=== PATIENT | female | born 1970 | race Caucasian/White ===

== ENCOUNTER 2020-10-09 21:40 | Emergency (ER) | payer OTHER ==
[~2020-10-09 21:40] MED LIST: BACTRIM DS TAB1 EACH PO; CYCLOBENZAPRINE10 MG PO; KEFLEX500 MG PO; MEDROL 4MG DOSEP4 MG PO; NEURONTIN100 MG PO; NORCO 5-325 TA1 EACH PO; OXYCODONE-ACET1 EAC1 PO; PREDNISONE 20MG20 MG PO; TERBINAFINE TOP; TESSALON PERLE100 MG PO; ZOFRAN8 MG PO
[2020-10-09 23:49] LABS: EOSINOPHIL 3.2 % (0-5); HCT 43.1 % (37.0-47.0); HGB 15.4 g/dl (12.5-16.0); MCH 35.9 pg (25.0-31.0); MCHC 35.7 g/dL (32.0-36.0); MCV 100.5 fL (78.0-100.0); MONOCYTE 6.9 % (0-12); NEUTROPHIL 70.5 % (41-80); NRBC 0; PLT 216 K/uL (150-400); RBC 4.29 M/uL (4.20-5.40); RDW 12.7 % (11.5-14.0); WBC 7.3 K/uL (4.0-10.5)
[2020-10-09 23:59] LABS: INR 0.98 (0.9-1.2); PROTHROMBIN TIME 12.3 SECONDS (11.4-13.6); PTT 20.4 SECONDS (22.2-34.7)
[2020-10-10 00:06] LABS: ALBUMIN 3.7 g/dL (3.4-5.0); ALKALINE PHOSHATASE 95 U/L (46-116); ALT 58 U/L (14-59); AST 33 U/L (15-37); BILIRUBIN - TOTAL 1.4 mg/dL (0.2-1.0); BUN 11 mg/dL (7-18); BUN/CREAT RATIO (CALC) 11.8 RATIO; C-REACTIVE PROTEIN <0.20 mg/dL (<=0.90); CHLORIDE 103 mmol/L (98-107); CO2 (BICARBONATE) 27 mmol/L (21-32); CREATININE 0.93 mg/dL (0.51-0.95); GLOBULIN (CALCULATION) 3.8 g/dL; GLUCOSE 104 mg/dL (74-106); MAGNESIUM 2.2 mg/dL (1.8-2.4); POTASSIUM 3.4 mmol/L (3.5-5.1); TOTAL PROTEIN 7.5 g/dL (6.4-8.2)
[2020-10-10] MEDS ORDERED: NORCO 5-325 TA1 EACH PO (02:49)
== END 2020-10-10 03:17 | disposition home or self-care (01) ==
LOC: FER 21:40
PROVIDERS: Emergency Medicine
DX: G89.18 Other acute postprocedural pain (principal); N64.4 Mastodynia; M25.512 Pain in left shoulder; Z85.3 Personal history of malignant neoplasm of breast; Z87.891 Personal history of nicotine dependence; Z86.14 Personal history of Methicillin resistant Staphylococcus aureus infection
CPT/HCPCS: 36415; 71260; 80053; 83605; 83735; 84145; 85025; 85610; 85730; 86140; 87040; J1170; J2405; J7030; Q9967

== ENCOUNTER 2021-01-23 11:09 | Emergency (ER) | payer OTHER ==
[2021-01-23 14:38] LABS: BASOPHIL 0.7 % (0-2); EOSINOPHIL 2.2 % (0-5); HCT 39.1 % (37.0-47.0); LYMPHOCYTE 19.8 % (15-48); MCH 36.2 pg (25.0-31.0); MCHC 35.8 g/dL (32.0-36.0); MONOCYTE 5.7 % (0-12); NEUTROPHIL 70.7 % (41-80); NRBC 0; PLT 194 K/uL (150-400); RBC 3.87 M/uL (4.20-5.40); RDW 12.9 % (11.5-14.0); WBC 6.8 K/uL (4.0-10.5)
[2021-01-23 14:43] LABS: ALBUMIN 3.2 g/dL (3.4-5.0); BILIRUBIN - TOTAL 0.9 mg/dL (0.2-1.0); BUN/CREAT RATIO (CALC) 20.2 RATIO; CREATININE 0.94 mg/dL (0.51-0.95); GLOBULIN (CALCULATION) 2.9 g/dL; POTASSIUM 3.8 mmol/L (3.5-5.1); TOTAL PROTEIN 6.1 g/dL (6.4-8.2)
[2021-01-23 14:53] LABS: PRO-BNP 393 pg/mL (<125)
[2021-01-23 15:15] LABS: INFLUENZA A NAA NEGATIVE (NEGATIVE)
[2021-01-23 15:21] LABS: CORONAVIRUS 2019 SARS-COV-2 POSITIVE (NEGATIVE)
[2021-01-23] MEDS ORDERED: VENTOLIN HFA IN18 GM INH (15:36)
[2021-01-23] MEDS ORDERED: TESSALON PERLE100 MG PO (15:36)
[2021-01-23] MEDS ORDERED: MEDROL 4MG DOSEP4 MG PO (15:36)
== END 2021-01-23 15:55 | disposition home or self-care (01) ==
LOC: FER 11:09
PROVIDERS: Nurse Practitioner Family
DX: U07.1 COVID-19 (principal)
CPT/HCPCS: 36415; 71046; 80053; 83880; 84484; 85025; 85379; J1100; U0002

== ENCOUNTER 2021-01-28 23:03 | Inpatient (IN) | payer OTHER ==
[~2021-01-28 23:03] MED LIST changes: +VENTOLIN HFA IN18 GM INH
[2021-01-28 23:51] LABS: BASOPHIL 0.5 % (0-2); EOSINOPHIL 0.2 % (0-5); HGB 14.7 g/dl (12.5-16.0); LYMPHOCYTE 13.7 % (15-48); MCH 36.7 pg (25.0-31.0); MCHC 35.9 g/dL (32.0-36.0); MCV 102.2 fL (78.0-100.0); MONOCYTE 4.9 % (0-12); MPV 10.9 fL (6.0-9.5); NEUTROPHIL 79.2 % (41-80); NRBC 0.2; PLT 198 K/uL (150-400); RBC 4.01 M/uL (4.20-5.40); RDW 13.4 % (11.5-14.0); WBC 12.4 K/uL (4.0-10.5)
[2021-01-29 00:13] LABS: BUN/CREAT RATIO (CALC) 20.4 RATIO; CREATININE 0.93 mg/dL (0.51-0.95); POTASSIUM 3.3 mmol/L (3.5-5.1)
[2021-01-29 00:16] LABS: INR 1.03 (0.9-1.2); PROTHROMBIN TIME 12.8 SECONDS (11.4-13.6)
[2021-01-29 00:23] LABS: LACTIC ACID 2.8 mmol/L (0.4-1.9)
[2021-01-29 00:26] LABS: PRO-BNP 680 pg/mL (<125)
[2021-01-29 00:27] LABS: BILIRUBIN NEGATIVE (NEGATIVE); BLOOD NEGATIVE Ery/uL (NEGATIVE); CLARITY CLEAR (CLEAR); COLOR YELLOW (YELLOW); GLUCOSE (U) NORMAL (NORMAL); LEUKOCYTES NEGATIVE Leu/uL (NEGATIVE); NITRITE NEGATIVE (NEGATIVE); PROTEIN NEGATIVE (NEGATIVE); SPECIFIC GRAVITY 1.015 (1.001-1.030); UROBILINOGEN 0.2 mg/dL (0.2-1.0); pH 5.5 (5.0-9.0)
[2021-01-29 00:29] LABS: HCG (URINE) SCREEN NEGATIVE (NEGATIVE)
[2021-01-29] MEDS ORDERED: MELOXICAM15 MG PO (04:39)
[2021-01-29] MEDS ORDERED: DIAZEPAM 5MG TAB5 MG PO (04:40)
[2021-01-29] MEDS ORDERED: PRISTIQ50 MG PO (04:41)
[2021-01-29] MEDS ORDERED: PANTOPRAZOLE SO20 MG PO (04:41)
[2021-01-29] MEDS ORDERED: PHENERGAN6.25 MG/5 PO (04:42)
[2021-01-29] MEDS ORDERED: PEPCID AC20 MG PO (04:42)
[2021-01-29] MEDS ORDERED: FLONASE ALLER15.8 ML (04:43)
[2021-01-29] MEDS ORDERED: ALL DAY ALLERGY10 M2 PO (04:44)
[2021-01-29] MEDS ORDERED: ANASTROZOLE1 MG PO (04:45)
[2021-01-29] MEDS ORDERED: SM CALCIUM PO (04:45)
[2021-01-29] MEDS ORDERED: VENTOLIN HFA IN18 GM INH ×2 (04:45→04:51)
[2021-01-29 07:15] LABS: BASOPHIL 0.3 % (0-2); EOSINOPHIL 0 % (0-5); HCT 39.6 % (37.0-47.0); HGB 14.3 g/dl (12.5-16.0); LYMPHOCYTE 5.6 % (15-48); MCH 36.5 pg (25.0-31.0); MCHC 36.1 g/dL (32.0-36.0); MONOCYTE 1.1 % (0-12); MPV 9.8 fL (6.0-9.5); NEUTROPHIL 91.4 % (41-80); NRBC 0; PLT 212 K/uL (150-400); RBC 3.92 M/uL (4.20-5.40); RDW 13.4 % (11.5-14.0); WBC 10.8 K/uL (4.0-10.5)
[2021-01-29 07:47] LABS: BUN/CREAT RATIO (CALC) 17.4 RATIO; CREATININE 0.86 mg/dL (0.51-0.95); POTASSIUM 4.5 mmol/L (3.5-5.1)
[2021-01-29] MEDS ORDERED: DESVENLAFAXINE50 MG PO (12:17)
[2021-01-29 15:48] LABS: HCT 37.9 % (37.0-47.0); HGB 13.7 g/dl (12.5-16.0); MCH 36.6 pg (25.0-31.0); MCHC 36.1 g/dL (32.0-36.0); MCV 101.3 fL (78.0-100.0); MPV 10.2 fL (6.0-9.5); RBC 3.74 M/uL (4.20-5.40); RDW 13.5 % (11.5-14.0); RETICULOCYTE COUNT 3.6 % (1.0-2.0); WBC 13.2 K/uL (4.0-10.5)
[2021-01-29 16:14] LABS: IRON % SATURATION 32.5 %SAT (20-50)
[2021-01-29 16:27] LABS: BUN/CREAT RATIO (CALC) 24.4 RATIO; CREATININE 0.82 mg/dL (0.51-0.95); FOLIC ACID (SERUM) 12.5 ng/mL (8.6-58.9)
[2021-01-30 05:54] LABS: BASOPHIL 0.6 % (0-2); EOSINOPHIL 0.2 % (0-5); HCT 43.2 % (37.0-47.0); HGB 15.1 g/dl (12.5-16.0); LYMPHOCYTE 18.8 % (15-48); MCH 36.5 pg (25.0-31.0); MCV 104.3 fL (78.0-100.0); MONOCYTE 6.6 % (0-12); MPV 10.8 fL (6.0-9.5); NEUTROPHIL 72.4 % (41-80); NRBC 0; PLT 197 K/uL (150-400); RBC 4.14 M/uL (4.20-5.40); RDW 13.8 % (11.5-14.0); WBC 12.4 K/uL (4.0-10.5)
[2021-01-30 06:45] LABS: BUN/CREAT RATIO (CALC) 18.8 RATIO; CREATININE 0.96 mg/dL (0.51-0.95); MAGNESIUM 2.1 mg/dL (1.8-2.4); POTASSIUM 4.3 mmol/L (3.5-5.1)
--- NOTE | 2021-01-30 18:17 | NUR ---
RN PERFORMED WALK TEST, RESTING SP02 ON RA 94% AMBULATION ON RA 77% AND AMBULATION WITH 2L O2 88%
[2021-01-31 05:59] LABS: BASOPHIL 0.6 % (0-2); EOSINOPHIL 1.6 % (0-5); HCT 41.6 % (37.0-47.0); HGB 14.8 g/dl (12.5-16.0); MCH 36.9 pg (25.0-31.0); MCHC 35.6 g/dL (32.0-36.0); MCV 103.7 fL (78.0-100.0); MONOCYTE 3.9 % (0-12); MPV 10.5 fL (6.0-9.5); NEUTROPHIL 74.3 % (41-80); NRBC 0; PLT 165 K/uL (150-400); RBC 4.01 M/uL (4.20-5.40); RDW 13.2 % (11.5-14.0); WBC 6.7 K/uL (4.0-10.5)
[2021-01-31 06:26] LABS: BUN/CREAT RATIO (CALC) 20.8 RATIO; CREATININE 1.01 mg/dL (0.51-0.95); POTASSIUM 3.5 mmol/L (3.5-5.1)
[2021-01-31 06:33] LABS: NEUTROPHILS(M) 80 % (41-80)
[2021-01-31 06:34] LABS: BAND 3 % (0-10); EOSINOPHIL(M) 1 % (0-5); LYMPHOCYTE(M) 14 % (15-48); MONOCYTE(M) 2 % (0-12); PLATELET ESTIMATE NORMAL; PLATELET MORPHOLOGY NORMAL
--- NOTE | 2021-01-31 10:24 | NUR ---
01/31/21 Ms. Horton shares a home with her boyfriend and another friend. She was independent in the home and community prior to admission. No discharge needs are anticipated.
== END 2021-01-31 17:13 | disposition other institution (70) | DRG 291 ==
LOC: FER 23:03 → FTCU 01-29 03:28
PROVIDERS: Internal Medicine; Internal Medicine Cardiovascular Disease; Nurse Practitioner; Student in an Organized Health Care Education/Training Program; ADMIT Allergy & Immunology Allergy
DX: I50.33 Acute on chronic diastolic (congestive) heart failure (principal); J96.01 Acute respiratory failure with hypoxia; R65.11 Systemic inflammatory response syndrome (SIRS) of non-infectious origin with acute organ dysfunction; E87.2 Acidosis; J70.1 Chronic and other pulmonary manifestations due to radiation; Z20.822 Contact with and (suspected) exposure to COVID-19; I27.20 Pulmonary hypertension, unspecified; F41.9 Anxiety disorder, unspecified; I08.8 Other rheumatic multiple valve diseases; M51.36 Other intervertebral disc degeneration, lumbar region; F10.11 Alcohol abuse, in remission; Z87.891 Personal history of nicotine dependence; Z85.72 Personal history of non-Hodgkin lymphomas; Z92.3 Personal history of irradiation; Z85.3 Personal history of malignant neoplasm of breast; Z90.13 Acquired absence of bilateral breasts and nipples; Z98.890 Other specified postprocedural states; Z79.51 Long term (current) use of inhaled steroids; Z79.899 Other long term (current) drug therapy; Z90.710 Acquired absence of both cervix and uterus
CPT/HCPCS: 36415; 71046; 71275; 80048; 80202; 81003; 82607; 82746; 83540; 83550; 83605; 83615; 83735; 83880; 84145; 84439; 84443; 84484; 84703; 85025; 85610; 85730; 87040; 87070; 87205; 93005; 94640; 94664; 94667; 94668; J1100; J1650; J1885; J1940; J2060; J2270; J2405; J2543; J3370; J7030; J7050; J7120; Q9967; U0002

== ENCOUNTER 2021-02-07 03:34 | Emergency (ER) | payer OTHER ==
[~2021-02-07 03:34] MED LIST changes: +ALL DAY ALLERGY10 M2 PO; +ANASTROZOLE1 MG PO; +DESVENLAFAXINE50 MG PO; +DIAZEPAM 5MG TAB5 MG PO; +FLONASE ALLER15.8 ML; +MELOXICAM15 MG PO; +PANTOPRAZOLE SO20 MG PO; +PEPCID AC20 MG PO; +PHENERGAN6.25 MG/5 PO; +PRISTIQ50 MG PO; +SM CALCIUM PO
[2021-02-07 04:41] LABS: BASOPHIL 0.2 % (0-2); EOSINOPHIL 0.3 % (0-5); HCT 39.3 % (37.0-47.0); LYMPHOCYTE 16.5 % (15-48); MCH 37.1 pg (25.0-31.0); MCHC 35.6 g/dL (32.0-36.0); MCV 104.2 fL (78.0-100.0); MONOCYTE 8.3 % (0-12); NRBC 0; PLT 224 K/uL (150-400); RBC 3.77 M/uL (4.20-5.40); WBC 12.4 K/uL (4.0-10.5)
[2021-02-07 05:15] LABS: ALBUMIN 3.5 g/dL (3.4-5.0); BILIRUBIN - TOTAL 0.6 mg/dL (0.2-1.0); BUN/CREAT RATIO (CALC) 29.1 RATIO; CREATININE 0.86 mg/dL (0.51-0.95); GLOBULIN (CALCULATION) 3.3 g/dL; MAGNESIUM 2.2 mg/dL (1.8-2.4); PHOSPHORUS 4.5 mg/dL (2.6-4.7); POTASSIUM 3.6 mmol/L (3.5-5.1); TOTAL PROTEIN 6.8 g/dL (6.4-8.2); URIC ACID 6.7 mg/dL (2.6-6.2)
[2021-02-07] MEDS ORDERED: PERCOCET 5-3251 EACH PO (07:45)
[2021-02-07] MEDS ORDERED: IBUPROFEN800 MG PO (07:45)
== END 2021-02-07 08:19 | disposition home or self-care (01) ==
LOC: FER 03:34
PROVIDERS: Emergency Medicine Emergency Medical Services
DX: M25.561 Pain in right knee (principal); M25.562 Pain in left knee; M25.532 Pain in left wrist; M79.89 Other specified soft tissue disorders; R00.0 Tachycardia, unspecified
CPT/HCPCS: 36415; 80053; 83735; 84100; 84550; 85025; 85379; J1100; J1170; J1885; J2405

== ENCOUNTER 2021-02-18 14:43 | Emergency (ER) | payer OTHER ==
[~2021-02-18 14:43] MED LIST changes: +IBUPROFEN800 MG PO; +PERCOCET 5-3251 EACH PO
[2021-02-18 15:50] LABS: ALBUMIN 3.5 g/dL (3.4-5.0); BASOPHIL 0.6 % (0-2); BILIRUBIN - TOTAL 1.5 mg/dL (0.2-1.0); BUN/CREAT RATIO (CALC) 18.5 RATIO; CREATININE 0.81 mg/dL (0.51-0.95); EOSINOPHIL 2.7 % (0-5); GLOBULIN (CALCULATION) 3.1 g/dL; HCT 38.7 % (37.0-47.0); HGB 13.7 g/dl (12.5-16.0); LYMPHOCYTE 17.2 % (15-48); MCH 37.3 pg (25.0-31.0); MCHC 35.4 g/dL (32.0-36.0); MCV 105.4 fL (78.0-100.0); MONOCYTE 5.4 % (0-12); MPV 9.9 fL (6.0-9.5); NRBC 0; POTASSIUM 4.6 mmol/L (3.5-5.1); RBC 3.67 M/uL (4.20-5.40); RDW 14.3 % (11.5-14.0); TOTAL PROTEIN 6.6 g/dL (6.4-8.2); WBC 5.2 K/uL (4.0-10.5)
[2021-02-18 15:58] LABS: PRO-BNP 414 pg/mL (<125)
[2021-02-18 16:13] LABS: PLT 170 K/uL (150-400)
[2021-02-18 17:04] LABS: INR 0.98 (0.9-1.2); PROTHROMBIN TIME 12.3 SECONDS (11.4-13.6); PTT 23.5 SECONDS (22.2-34.7)
[2021-02-18 17:28] LABS: BILIRUBIN NEGATIVE (NEGATIVE); BLOOD NEGATIVE Ery/uL (NEGATIVE); CLARITY CLEAR (CLEAR); COLOR YELLOW (YELLOW); GLUCOSE (U) NORMAL (NORMAL); LEUKOCYTES NEGATIVE Leu/uL (NEGATIVE); NITRITE NEGATIVE (NEGATIVE); PROTEIN TRACE (LOW) mg/dL (NEGATIVE); SPECIFIC GRAVITY 1.015 (1.001-1.030); pH 8.5 (5.0-9.0)
[2021-02-18 17:39] LABS: BACTERIA 1+
[2021-02-18 21:00] LABS: LACTIC ACID 0.4 mmol/L (0.4-1.9)
== END 2021-02-19 04:46 | disposition home or self-care (01) ==
LOC: FER 14:43
PROVIDERS: Emergency Medicine
DX: J84.10 Pulmonary fibrosis, unspecified (principal); R00.0 Tachycardia, unspecified; I50.9 Heart failure, unspecified; Z20.822 Contact with and (suspected) exposure to COVID-19
CPT/HCPCS: 36415; 71045; 71250; 80053; 81001; 83605; 83880; 84145; 84484; 85025; 85379; 85610; 85730; 93005; J1885; J2270; J2405; J7030; U0002

== ENCOUNTER 2021-03-27 08:46 | Emergency (ER) | payer OTHER ==
[2021-03-27 09:20] LABS: BASOPHIL 0.8 % (0-2); EOSINOPHIL 3.2 % (0-5); HCT 39.5 % (37.0-47.0); HGB 13.7 g/dl (12.5-16.0); LYMPHOCYTE 23.8 % (15-48); MCH 37.3 pg (25.0-31.0); MCHC 34.7 g/dL (32.0-36.0); MCV 107.6 fL (78.0-100.0); MONOCYTE 5.7 % (0-12); MPV 9.8 fL (6.0-9.5); NEUTROPHIL 66.1 % (41-80); NRBC 0; PLT 200 K/uL (150-400); RBC 3.67 M/uL (4.20-5.40); RDW 14.3 % (11.5-14.0); WBC 7.1 K/uL (4.0-10.5)
[2021-03-27 09:35] LABS: ALBUMIN 3.6 g/dL (3.4-5.0); BILIRUBIN - TOTAL 0.7 mg/dL (0.2-1.0); BUN/CREAT RATIO (CALC) 10.7 RATIO; CREATININE 0.84 mg/dL (0.51-0.95); GLOBULIN (CALCULATION) 3.2 g/dL; POTASSIUM 3.7 mmol/L (3.5-5.1); TOTAL PROTEIN 6.8 g/dL (6.4-8.2)
[2021-03-27 09:43] LABS: PRO-BNP 597 pg/mL (<125)
[2021-03-27] MEDS ORDERED: LOPRESSOR25 MG PO (10:52)
[2021-03-27] MEDS ORDERED: LASIX20 MG PO (10:52)
== END 2021-03-27 11:30 | disposition home or self-care (01) ==
LOC: FER 08:46
PROVIDERS: Emergency Medicine
DX: I50.9 Heart failure, unspecified (principal); Z90.13 Acquired absence of bilateral breasts and nipples; Z79.82 Long term (current) use of aspirin; Z79.899 Other long term (current) drug therapy; Z85.3 Personal history of malignant neoplasm of breast
CPT/HCPCS: 36415; 71045; 80053; 83605; 83880; 84484; 85025; 87040; 93005; 94760; J1940

== ENCOUNTER 2021-10-06 19:48 | Emergency (ER) | payer OTHER ==
[~2021-10-06 19:48] MED LIST changes: +LASIX20 MG PO; +LOPRESSOR25 MG PO
[2021-10-06 21:24] LABS: EOSINOPHIL 2.7 % (0-5); HGB 15.8 g/dl (12.5-16.0); LYMPHOCYTE 23.6 % (15-48); MCH 36.4 pg (25.0-31.0); MCHC 35.9 g/dL (32.0-36.0); MCV 101.4 fL (78.0-100.0); MONOCYTE 6.5 % (0-12); NRBC 0; PLT 237 K/uL (150-400); RBC 4.34 M/uL (4.20-5.40); RDW 11.9 % (11.5-14.0); WBC 8.6 K/uL (4.0-10.5)
[2021-10-06 21:36] LABS: CORONAVIRUS 2019 SARS-COV-2 NEGATIVE (NEGATIVE); INFLUENZA A NAA NEGATIVE (NEGATIVE)
[2021-10-06 21:51] LABS: ALBUMIN 3.7 g/dL (3.4-5.0); BILIRUBIN - TOTAL 0.7 mg/dL (0.2-1.0); CREATININE 0.7 mg/dL (0.51-0.95); GLOBULIN (CALCULATION) 3.9 g/dL; POTASSIUM 3.7 mmol/L (3.5-5.1); TOTAL PROTEIN 7.6 g/dL (6.4-8.2)
[2021-10-07] MEDS ORDERED: PREDNISONE 20MG20 MG PO (08:04)
[2021-10-07] MEDS ORDERED: ATIVAN1 MG PO (08:04)
[2021-10-07] MEDS ORDERED: AZITHROMYCIN250 MG PO (08:04)
[2021-10-07] MEDS ORDERED: AUGMENTIN 875-1 EACH PO (08:04)
== END 2021-10-07 08:45 | disposition home or self-care (01) ==
LOC: FER 19:48
PROVIDERS: Nurse Practitioner Family
DX: C78.00 Secondary malignant neoplasm of unspecified lung (principal); R91.8 Other nonspecific abnormal finding of lung field; I11.0 Hypertensive heart disease with heart failure; I50.9 Heart failure, unspecified; K76.89 Other specified diseases of liver; J45.909 Unspecified asthma, uncomplicated; Z20.822 Contact with and (suspected) exposure to COVID-19; Z53.29 Procedure and treatment not carried out because of patient's decision for other reasons; Z79.899 Other long term (current) drug therapy; Z85.3 Personal history of malignant neoplasm of breast
CPT/HCPCS: 36415; 71045; 71275; 80053; 83880; 84484; 85025; 93005; 94640; 94664; J1100; J1940; J2060; Q9967; U0002

== ENCOUNTER 2021-10-24 10:20 | Emergency (ER) | payer OTHER ==
[~2021-10-24 10:20] MED LIST changes: +ATIVAN1 MG PO; +AUGMENTIN 875-1 EACH PO; +AZITHROMYCIN250 MG PO
[2021-10-24 12:11] LABS: BASOPHIL 0.7 % (0-2); EOSINOPHIL 2.8 % (0-5); HCT 42.8 % (37.0-47.0); HGB 15.1 g/dl (12.5-16.0); LYMPHOCYTE 10.6 % (15-48); MCH 36.7 pg (25.0-31.0); MCHC 35.3 g/dL (32.0-36.0); MCV 103.9 fL (78.0-100.0); MONOCYTE 4.1 % (0-12); MPV 10.3 fL (6.0-9.5); NEUTROPHIL 81.3 % (41-80); NRBC 0; PLT 226 K/uL (150-400); RBC 4.12 M/uL (4.20-5.40); RDW 12.7 % (11.5-14.0)
[2021-10-24 12:14] LABS: INR 1.02 (0.9-1.2); PROTHROMBIN TIME 12.8 SECONDS (11.8-13.4); PTT 25.5 SECONDS (24.4-34.7)
[2021-10-24 12:21] LABS: LACTIC ACID 1.7 mmol/L (0.4-1.9)
[2021-10-24 12:31] LABS: ALBUMIN 3.7 g/dL (3.4-5.0); BUN/CREAT RATIO (CALC) 12.7 RATIO; CREATININE 0.79 mg/dL (0.51-0.95); GLOBULIN (CALCULATION) 3.8 g/dL; POTASSIUM 3.9 mmol/L (3.5-5.1); TOTAL PROTEIN 7.5 g/dL (6.4-8.2)
[2021-10-24 13:37] LABS: CORONAVIRUS 2019 SARS-COV-2 NEGATIVE (NEGATIVE); INFLUENZA A NAA NEGATIVE (NEGATIVE)
[2021-10-24] MEDS ORDERED: NORCO 5-325 TA1 EACH PO (16:21)
[2021-10-24] MEDS ORDERED: ZPAK PO (16:21)
[2021-10-26] MEDS ORDERED: LOPRESSOR50 MG PO (06:23)
[2021-10-26] MEDS ORDERED: SYMBICORT 16010.2 GM INH (06:25)
[2021-10-26] MEDS ORDERED: ULTRAM50 MG PO (08:22)
[2021-10-26] MEDS ORDERED: NORCO 5-325 TA1 EACH PO (11:16)
== END 2021-10-24 17:07 | disposition home or self-care (01) ==
LOC: FER 10:20
PROVIDERS: Emergency Medicine
DX: J40 Bronchitis, not specified as acute or chronic (principal); C78.01 Secondary malignant neoplasm of right lung; I50.9 Heart failure, unspecified; Z20.822 Contact with and (suspected) exposure to COVID-19; Z87.891 Personal history of nicotine dependence; Z79.899 Other long term (current) drug therapy
CPT/HCPCS: 36415; 36600; 71045; 71275; 80053; 82803; 83605; 83880; 84145; 84484; 85025; 85610; 85730; J1170; J2060; J2930; Q9967; U0002

== ENCOUNTER → 2021-10-26 | Day surgery (SDC) | payer OTHER ==
[~2021-10-26] VITALS: Ht 167.6 cm; Wt 73.9 kg
[~2021-10-26] MED LIST changes: +LOPRESSOR50 MG PO; +SYMBICORT 16010.2 GM INH; +ULTRAM50 MG PO; +ZPAK PO
== END | disposition home or self-care (01) ==
LOC: FAS 06:06
DX: C34.92 Malignant neoplasm of unspecified part of left bronchus or lung (principal); C77.1 Secondary and unspecified malignant neoplasm of intrathoracic lymph nodes; C50.912 Malignant neoplasm of unspecified site of left female breast; I11.0 Hypertensive heart disease with heart failure; I50.9 Heart failure, unspecified; J45.909 Unspecified asthma, uncomplicated; J84.10 Pulmonary fibrosis, unspecified; F41.9 Anxiety disorder, unspecified; M19.90 Unspecified osteoarthritis, unspecified site; F17.200 Nicotine dependence, unspecified, uncomplicated; F32.A Depression, unspecified; K21.9 Gastro-esophageal reflux disease without esophagitis; Z85.3 Personal history of malignant neoplasm of breast; Z79.2 Long term (current) use of antibiotics; Z79.1 Long term (current) use of non-steroidal anti-inflammatories (NSAID); Z79.899 Other long term (current) drug therapy; Z90.710 Acquired absence of both cervix and uterus; Z99.89 Dependence on other enabling machines and devices; Z90.13 Acquired absence of bilateral breasts and nipples; Z80.3 Family history of malignant neoplasm of breast; Z82.49 Family history of ischemic heart disease and other diseases of the circulatory system
CPT/HCPCS: 71045; 76000; C1788; J0690; J1100; J1644; J1885; J2001; J2250; J2405; J2704; J3010; J7120

== ENCOUNTER 2021-11-08 10:05 | Emergency (ER) | payer OTHER ==
[2021-11-08 11:31] LABS: BASOPHIL 2.7 % (0-2); HCT 34.3 % (37.0-47.0); HGB 12.3 g/dl (12.5-16.0); LYMPHOCYTE 46.9 % (15-48); MCH 37.2 pg (25.0-31.0); MCHC 35.9 g/dL (32.0-36.0); MCV 103.6 fL (78.0-100.0); MONOCYTE 5.4 % (0-12); MPV 10.1 fL (6.0-9.5); NEUTROPHIL 42.3 % (41-80); NRBC 0; RBC 3.31 M/uL (4.20-5.40); RDW 12.2 % (11.5-14.0)
[2021-11-08 11:35] LABS: LACTIC ACID 2.2 mmol/L (0.4-1.9)
[2021-11-08 11:39] LABS: PLT 85 K/uL (150-400); WBC 1.5 K/uL (4.0-10.5)
[2021-11-08 11:41] LABS: ALBUMIN 3.2 g/dL (3.4-5.0); BILIRUBIN - TOTAL 0.8 mg/dL (0.2-1.0); BUN/CREAT RATIO (CALC) 14.7 RATIO; CREATININE 0.68 mg/dL (0.51-0.95); GLOBULIN (CALCULATION) 3.6 g/dL; POTASSIUM 3.7 mmol/L (3.5-5.1); TOTAL PROTEIN 6.8 g/dL (6.4-8.2)
[2021-11-08] MEDS ORDERED: AZITHROMYCIN250 MG PO (15:44)
[2021-11-08] MEDS ORDERED: CEFDINIR300 MG PO (15:44)
== END 2021-11-08 16:05 | disposition home or self-care (01) ==
LOC: FER 10:05
PROVIDERS: Emergency Medicine
DX: C34.11 Malignant neoplasm of upper lobe, right bronchus or lung (principal); I50.9 Heart failure, unspecified
CPT/HCPCS: 36415; 71045; 71260; 80053; 83605; 83880; 84145; 84484; 85025; J1170; J2405; J7030; Q9967

== ENCOUNTER 2021-11-21 06:09 | Inpatient (IN) | payer OTHER ==
[~2021-11-21] VITALS: Ht 162.6 cm; Wt 79.0 kg
[~2021-11-21 06:09] MED LIST changes: +CEFDINIR300 MG PO
[2021-11-21 06:56] LABS: BASOPHIL 0.1 % (0-2); EOSINOPHIL 0 % (0-5); HCT 29.3 % (37.0-47.0); HGB 10.3 g/dl (12.5-16.0); LYMPHOCYTE 5.7 % (15-48); MCH 37.3 pg (25.0-31.0); MCHC 35.2 g/dL (32.0-36.0); MCV 106.2 fL (78.0-100.0); MONOCYTE 4.4 % (0-12); MPV 10.3 fL (6.0-9.5); NEUTROPHIL 88.6 % (41-80); PLT 273 K/uL (150-400); RBC 2.76 M/uL (4.20-5.40); RDW 14.2 % (11.5-14.0); WBC 11.2 K/uL (4.0-10.5)
[2021-11-21 07:02] LABS: INR 1.17 (0.9-1.2); PROTHROMBIN TIME 14.3 SECONDS (11.8-13.4); PTT 21.8 SECONDS (24.4-34.7)
[2021-11-21 07:04] LABS: D-DIMER 0.62 ug/mLFEU (0.00-0.41)
[2021-11-21 07:19] LABS: ALBUMIN 3.6 g/dL (3.4-5.0); BUN/CREAT RATIO (CALC) 17.2 RATIO; CREATININE 0.93 mg/dL (0.51-0.95); GLOBULIN (CALCULATION) 3.7 g/dL; POTASSIUM 4.9 mmol/L (3.5-5.1); TOTAL PROTEIN 7.3 g/dL (6.4-8.2)
[2021-11-21] MEDS ORDERED: LASIX20 MG PO (11:59)
[2021-11-21] MEDS ORDERED: PRISTIQ50 MG PO (11:59)
[2021-11-21] MEDS ORDERED: ATIVAN1 M1 PO (12:00)
[2021-11-21] MEDS ORDERED: TOPROL XL 50 MG50 MG PO (12:00)
[2021-11-21] MEDS ORDERED: ANASTROZOLE1 MG PO (12:00)
[2021-11-21] MEDS ORDERED: VITAMIN D PO ×2 (12:01→12:18)
[2021-11-21] MEDS ORDERED: OS-CAL500 MG PO (12:01)
[2021-11-21] MEDS ORDERED: SPIRIVA18 MCG INH (12:03)
[2021-11-21] MEDS ORDERED: OXYCONTIN10 MG PO (12:04)
[2021-11-21] MEDS ORDERED: FLONASE ALLER15.8 ML (12:04)
[2021-11-21] MEDS ORDERED: CETIRIZINE HCL10 MG PO (12:04)
[2021-11-21] MEDS ORDERED: DECADRON4 MG PO (12:05)
[2021-11-21] MEDS ORDERED: SYMBICORT 80-10.2 GM INH (12:06)
[2021-11-21] MEDS ORDERED: PROTONIX 40MG T40 MG PO (12:13)
[2021-11-21] MEDS ORDERED: PROAIR DIGIHAL90 MCG INH (12:13)
[2021-11-21] MEDS ORDERED: COMPAZINE10 MG PO (12:13)
[2021-11-21] MEDS ORDERED: CALCIUM PO (12:17)
[2021-11-21] MEDS ORDERED: ZINC50 M3 PO (12:17)
[2021-11-21 15:24] LABS: IRON % SATURATION 84.3 %SAT (20-50)
[2021-11-22 06:06] LABS: BASOPHIL 0.1 % (0-2); EOSINOPHIL 0 % (0-5); HCT 30.8 % (37.0-47.0); HGB 10.5 g/dl (12.5-16.0); LYMPHOCYTE 5.7 % (15-48); MCH 37.5 pg (25.0-31.0); MCHC 34.1 g/dL (32.0-36.0); MONOCYTE 4.9 % (0-12); MPV 10.5 fL (6.0-9.5); NEUTROPHIL 88.6 % (41-80); NRBC 0.4; PLT 275 K/uL (150-400); RDW 15.3 % (11.5-14.0); WBC 16.4 K/uL (4.0-10.5)
[2021-11-22 06:30] LABS: ALBUMIN 3.3 g/dL (3.4-5.0); BILIRUBIN - TOTAL 1.4 mg/dL (0.2-1.0); BUN/CREAT RATIO (CALC) 17.4 RATIO; CREATININE 1.49 mg/dL (0.51-0.95); GLOBULIN (CALCULATION) 3.2 g/dL; MAGNESIUM 2.2 mg/dL (1.8-2.4); PHOSPHORUS 6.2 mg/dL (2.6-4.7); POTASSIUM 5.4 mmol/L (3.5-5.1); TOTAL PROTEIN 6.5 g/dL (6.4-8.2)
[2021-11-22 11:42] LABS: BUN/CREAT RATIO (CALC) 21.3 RATIO; CREATININE 1.36 mg/dL (0.51-0.95); MAGNESIUM 2.2 mg/dL (1.8-2.4); PHOSPHORUS 5.2 mg/dL (2.6-4.7); POTASSIUM 4.6 mmol/L (3.5-5.1)
--- NOTE | 2021-11-22 15:58 | NUR ---
11/22/21 Ms. Horton shares a home with her s.o. and who she refers to as her "adoptied son". He s.o.is disabled. He has a hospital bed and wc. He is able to walk to the bathroom. The "adopted son, 32 y/o, is ab;e to assist. - Ms. Horton does not use any DME. She is receiving treatment at [facility] for lung cancer. She has had a bilateral masectomy and Hodgkens Lymphoma in the past. - Ms. Horton will be transferred to the [facility]. Gallbladder surgery was post poned. - Emotional support is being provided.
== END 2021-11-22 20:20 | disposition other institution (70) | DRG 444 ==
LOC: FER 06:09 → FMS 09:54 → FTCU 09:54 → FMS 09:54 → FTCU 11-22 10:46
PROVIDERS: Emergency Medicine; ADMIT Internal Medicine
DX: K81.0 Acute cholecystitis (principal); I21.4 Non-ST elevation (NSTEMI) myocardial infarction; C34.90 Malignant neoplasm of unspecified part of unspecified bronchus or lung; C78.1 Secondary malignant neoplasm of mediastinum; C81.90 Hodgkin lymphoma, unspecified, unspecified site; Z20.822 Contact with and (suspected) exposure to COVID-19; D64.9 Anemia, unspecified; I08.0 Rheumatic disorders of both mitral and aortic valves; M51.36 Other intervertebral disc degeneration, lumbar region; F10.10 Alcohol abuse, uncomplicated; Z90.13 Acquired absence of bilateral breasts and nipples; Z90.710 Acquired absence of both cervix and uterus; Z92.21 Personal history of antineoplastic chemotherapy; Z85.3 Personal history of malignant neoplasm of breast; Z87.891 Personal history of nicotine dependence; Z90.711 Acquired absence of uterus with remaining cervical stump; Z98.890 Other specified postprocedural states; Z79.899 Other long term (current) drug therapy
CPT/HCPCS: 36415; 71045; 71275; 76705; 78226; 80048; 80053; 82248; 83540; 83550; 83605; 83690; 83735; 83880; 84100; 84145; 84484; 85025; 85379; 85610; 85730; 87040; 93005; 94010; 94760; A9537; C9113; J1170; J1644; J2270; J2405; J2543; J7030; Q0164; Q9967; U0002

== ENCOUNTER 2021-12-15 15:20 | Emergency (ER) | payer OTHER ==
[~2021-12-15 15:20] MED LIST changes: +ATIVAN1 M1 PO; +CALCIUM PO; +CETIRIZINE HCL10 MG PO; +COMPAZINE10 MG PO; +DECADRON4 MG PO; +OS-CAL500 MG PO; +OXYCONTIN10 MG PO; +PROAIR DIGIHAL90 MCG INH; +PROTONIX 40MG T40 MG PO; +SPIRIVA18 MCG INH; +SYMBICORT 80-10.2 GM INH; +TOPROL XL 50 MG50 MG PO; +VITAMIN D PO; +ZINC50 M3 PO
[2021-12-15 16:16] LABS: BASOPHIL 0.7 % (0-2); EOSINOPHIL 1.8 % (0-5); HCT 29.6 % (37.0-47.0); HGB 10.2 g/dl (12.5-16.0); LYMPHOCYTE 15.8 % (15-48); MCHC 34.5 g/dL (32.0-36.0); MCV 92.8 fL (78.0-100.0); MONOCYTE 10.3 % (0-12); MPV 10.3 fL (6.0-9.5); NRBC 0; PLT 236 K/uL (150-400); RBC 3.19 M/uL (4.20-5.40); RDW 17.8 % (11.5-14.0); WBC 6.7 K/uL (4.0-10.5)
[2021-12-15 16:44] LABS: LACTIC ACID 0.6 mmol/L (0.4-1.9)
[2021-12-15 16:57] LABS: ALBUMIN 3.7 g/dL (3.4-5.0); BILIRUBIN - TOTAL 1.5 mg/dL (0.2-1.0); CREATININE 1.64 mg/dL (0.51-0.95); GLOBULIN (CALCULATION) 4.4 g/dL; POTASSIUM 2.8 mmol/L (3.5-5.1); TOTAL PROTEIN 8.1 g/dL (6.4-8.2)
[2021-12-15 21:05] LABS: BILIRUBIN NEGATIVE (NEGATIVE); BLOOD NEGATIVE Ery/uL (NEGATIVE); CLARITY CLEAR (CLEAR); COLOR YELLOW (YELLOW); GLUCOSE (U) NORMAL (NORMAL); LEUKOCYTES NEGATIVE Leu/uL (NEGATIVE); NITRITE NEGATIVE (NEGATIVE); PROTEIN NEGATIVE (NEGATIVE); SPECIFIC GRAVITY 1.015 (1.001-1.030); UROBILINOGEN 0.2 mg/dL (0.2-1.0)
[2021-12-15 21:10] LABS: URINARY WBC RARE
[2021-12-15 21:11] LABS: BACTERIA TRACE
[2021-12-15 21:53] LABS: MAGNESIUM 3.6 mg/dL (1.8-2.4); POTASSIUM 3.6 mmol/L (3.5-5.1)
== END 2021-12-16 00:37 | disposition other institution (70) ==
LOC: FER 15:20
PROVIDERS: Emergency Medicine; Internal Medicine
DX: R10.13 Epigastric pain (principal); R11.2 Nausea with vomiting, unspecified; R74.01 Elevation of levels of liver transaminase levels; Z28.311 Partially vaccinated for COVID-19
CPT/HCPCS: 36415; 80053; 81001; 83605; 83690; 83735; 84132; 84145; 84484; 85025; 87040; 93005; J1170; J2405; J2543; J2550; J3475; J3480; J7030; J7050

== ENCOUNTER 2022-04-28 16:38 | Emergency (ER) | payer OTHER ==
[2022-04-28 17:41] LABS: BASOPHIL 0.4 % (0-2); EOSINOPHIL 1.8 % (0-5); HCT 39.5 % (37.0-47.0); HGB 13.9 g/dl (12.5-16.0); LYMPHOCYTE 12.5 % (15-48); MCH 37.5 pg (25.0-31.0); MCHC 35.2 g/dL (32.0-36.0); MCV 106.5 fL (78.0-100.0); MONOCYTE 4.3 % (0-12); MPV 9.8 fL (6.0-9.5); NRBC 0; PLT 293 K/uL (150-400); RBC 3.71 M/uL (4.20-5.40); RDW 13.3 % (11.5-14.0); WBC 15.9 K/uL (4.0-10.5)
[2022-04-28 17:46] LABS: INR 1.19 (0.9-1.2); PROTHROMBIN TIME 14.7 SECONDS (11.9-13.9); PTT 30.3 SECONDS (24.9-34.6)
[2022-04-28 17:47] LABS: D-DIMER 1.31 ug/mLFEU (0.00-0.41)
[2022-04-28 18:36] LABS: BILIRUBIN - TOTAL 0.6 mg/dL (0.2-1.0); BUN/CREAT RATIO (CALC) 9.5 RATIO; CREATININE 0.84 mg/dL (0.51-0.95); POTASSIUM 3.3 mmol/L (3.5-5.1)
[2022-04-28] MEDS ORDERED: AZITHROMYCIN250 MG PO (22:21)
[2022-04-28] MEDS ORDERED: PREDNISONE 20MG20 MG PO (22:21)
[2022-04-28] MEDS ORDERED: AMOX TR-K CLV1 EAC4 PO (22:21)
== END 2022-04-28 22:55 | disposition home or self-care (01) ==
LOC: FER 16:38
PROVIDERS: Emergency Medicine
DX: J44.0 Chronic obstructive pulmonary disease with (acute) lower respiratory infection (principal); J18.9 Pneumonia, unspecified organism; C34.91 Malignant neoplasm of unspecified part of right bronchus or lung; I10 Essential (primary) hypertension; Z87.891 Personal history of nicotine dependence; Z79.51 Long term (current) use of inhaled steroids; Z79.899 Other long term (current) drug therapy
CPT/HCPCS: 36415; 71046; 71275; 80053; 83880; 84484; 85025; 85379; 85610; 85730; 93005; J0696; J1170; J1642; J3010; J7030; Q9967